=== PATIENT | female | born 1960 | race Caucasian/White ===

== ENCOUNTER 2019-07-21 16:43 | Inpatient (IN) ==
[2019-07-21] MEDS ORDERED: ASPIRIN PO ONE (16:47)
--- NOTE | 2019-07-21 16:56 | EKG Report ---
Test Performed on : 07/21/2019 4:53:43 PM Test Reason : cp Blood Pressure : / mmHG Vent. Rate : 068 BPM Atrial Rate : 068 BPM P-R Int : 160 ms QRS Dur : 102 ms QT Int : 416 ms P-R-T Axes : 045 -02 077 degrees QTc Int : 442 ms Normal sinus rhythm. Possible Left atrial enlargement Borderline ECG No previous ECGs available Unconfirmed Result
[2019-07-21] MEDS ORDERED: ZOFRAN IV ONE (16:57)
[2019-07-21] MEDS ORDERED: MORPHINE IV ONE (16:57)
[2019-07-21] MEDS ORDERED: NITROGLYCERIN TOP ONE (17:05)
--- NOTE | 2019-07-21 17:11 | PROVIDER DOCUMENTATION ---
HPI-Chest Pain - General Chief Complaint: Chest Pain Stated Complaint: CP-HEART PT Time Seen by Provider: 07/21/19 16:57 Source: patient Allergies/Adverse Reactions: Patient Allergies Allergy/AdvReac Type Severity Reaction Status Date / Time Iodinated Contrast Media Allergy ANAPHYLAXIS Verified 07/21/19 16:56 [IV Dye] Home Medications: Home Medication List Medication Instructions Recorded Confirmed Last Taken Type Alprazolam [Xanax Xr] 3 mg PO BID 07/21/19 07/21/19 Unknown History Alprazolam [Xanax] 1 mg PO DIRECTED 07/21/19 07/21/19 Unknown History Dextroamphetamine/Amphetamine 30 mg PO BID 07/21/19 07/21/19 Unknown History [Adderall 30 mg Tablet] Metoprolol [Lopressor] 25 mg PO BID 07/21/19 07/21/19 Unknown History Topiramate [Topamax] 100 mg PO BID 07/21/19 07/21/19 Unknown History Trazodone [Desyrel] 50 mg PO QHS 07/21/19 07/21/19 Unknown History - History of Present Illness-CP Nature of Presenting Problem: 59 yof with pmh of cardiomyopathy, mitral and aortic regurg anc CAD presents with CP, burning/sharp, radiates to her back since last night. no aggravating or alleviating factors. associated with nausea. HTN on arrival Location: reports: substernal Chest Pain Radiation: reports: back Quality of Pain: reports: burning, sharp, stabbing Severity in ED: moderate Onset/Duration: last night Timing: still present Context/Activities at Onset: reports: none Modifying Factors: improves with: nothing Associated Symptoms: reports: nausea Nitro Today/Relief: no nitro taken today Aspirin Treatment Today: 325 mg x 1, provided by ED Prior Chest Pain/Cardiac Workup: reports: other (hx of : mitral and aortic regurg, cardiomyopathy, CAD) Similar Symptoms Previously?: No Recently Seen Here or By Another Healthcare Provider: No Review of Systems - Adult - REVIEW OF SYSTEMS - ADULT Constitutional: reports: no symptoms reported. denies: chills, fever Eyes: reports: no symptoms reported. denies: decreased vision, blurred vision, double vision, eye pain Ears, Nose, Mouth & Throat: reports: no symptoms reported. denies: sinus pro blem, nose pain, loose teeth, mouth/dental pain, mouth swelling Cardiovascular: reports: see HPI, chest pain. denies: palpitations, PND Respiratory: reports: no symptoms reported. denies: cough, hemoptysis, shortness of breath, wheezing Gastrointestinal: reports: see HPI, nausea. denies: abdominal pain, diarrhea, vomiting Genitourinary: reports: no symptoms reported. denies: discharge, flank pain, frequent UTI's, hematuria Musculoskeletal: reports: no symptoms reported. denies: see HPI, bone pain, back pain, frequent leg cramps, joint pain, joint swelling, muscle aches, muscle weakness, neck pain, other Integumentary: reports: no symptoms reported. denies: see HPI, hives, hair loss, itching, mole changes, nail changes, rash, skin sores/ulcer, skin thickening, other Neurological: reports: no symptoms reported. denies: see HPI, ataxia, dizziness/vertigo, headache/migraines, loss of balance, numbness, paresthesia, seizure, slurred speech, syncope, tremors, other Psychiatric: reports: no symptoms reported. denies: see HPI, anxiety, anti- depressant use, alcohol/drug dependence, depression, emotional problems, insomnia, panic attacks, suicidal thoughts, other Endocrine: reports: no symptoms reported. denies: see HPI, change in skin pigment, excessive sweating, goiter, cold intolerance, heat intolerance, increased hunger, increased thirst, polyuria, other Hematologic/Lymphatic: reports: no symptoms reported. denies: see HPI, blood clots, easy bruising, low blood count, lymphedema, prolonged bleeding, swollen lymph nodes, transfusions, other Allergic/Immunologic: reports: no symptoms reported. denies: see HPI, allergic reactions, allergic rhinitis, asthma, eczema, food allergy, frequent infections, hay fever, hives, positive PPD, urticaria, other Past History - Adult - PAST MEDICAL HISTORY-ADULT Review of Records: reports: Nursing Assessment Review, Social history reviewed & non-contributory. - SOCIAL HISTORY Smoking: cigarettes, greater than 1 pack/day Provider spent 3-5 mins advising pt. on dangers of tobacco.: Discussed manners to quit use, and f/u contacts for add'l counseling. Physical Exam-General - PHYSICAL EXAM-ADULT Initial Vital Signs Reviewed: Yes - CONSTITUTIONAL General Appearance: alert, no apparent distress - EYES Eyes: PERRL/EOMI, pink conjunctivae - HEAD, EARS, NOSE, MOUTH & THROAT HENMT: normocephalic/atraumatic, moist mucous membranes, normal ENT inspection - NECK Neck: non-tender, full range of motion, supple - RESPIRATORY Respiratory: chest non-tender, lungs clear, normal breath sounds, no pleuratic chest pain, no respiratory distress, no accessory muscle use - CARDIOVASCULAR Cardiovascular: normal peripheral pulses, regular rate, rhythm, no edema, no gallop, no JVD, no murmur - GASTROINTESTINAL (ABDOMEN) Abdominal Exam: normal bowel sounds, non tender, soft - LYMPHATIC Lymphatic: no adenopathy - MUSCULOSKELETAL Back Exam: normal inspection, no CVA tenderness, no vertebral tenderness Extremity: normal range of motion, non-tender, normal gait, normal inspection, no pedal edema Peripheral Pulses: radial (R): 2+, radial (L): 2+ - SKIN Integumentary: normal color, normal turgor, warm/dry - NEUROLOGIC Neurologic: grossly normal - PSYCHIATRIC Psych/Mental Status: normal mood/affect, oriented x 3 - HEART Score HEART Score: History: Moderately Suspicious HEART Score: ECG: Normal HEART Score: Age: 45-65 Years HEART Score: Risk Factors for Atherosclerotic Disease: > or = 3 Risk Factors or History of Atherosclerotic Disease HEART Score: Troponin: 1-3x Normal Limit Total HEART Score:: 5 Progress - PLAN OF CARE/RESULTS Progress/Plan/Lab Results: Vital Signs - 8 hr 07/21/19 16:53 07/21/19 17:15 07/21/19 17:42 Temperature 98.7 F Pulse Rate 71 70 61 Respiratory Rate 17 18 20 Blood Pressure 224/104 224/104 190/91 O2 Sat by Pulse Oximetry 99 98 96 07/21/19 18:35 07/21/19 18:42 07/21/19 18:45 Temperature Pulse Rate 60 62 62 Respiratory Rate 18 18 17 Blood Pressure 188/89 175/91 145/81 O2 Sat by Pulse Oximetry 98 99 07/21/19 19:01 07/21/19 19:04 07/21/19 19:06 Temperature Pulse Rate 63 59 L 62 Respiratory Rate 15 22 15 Blood Pressure 78/48 71/35 97/52 O2 Sat by Pulse Oximetry 98 99 99 Laboratory Results - last 24 hr 07/21/19 07/21/19 07/21/19 17:00 17:00 17:00 WBC RBC Hgb Hct MCV MCH MCHC RDW Std Deviation Plt Count MPV Immature Gran % (Auto) Neut % (Auto) Lymph % (Auto) Tompkins % (Auto) Eos % (Auto) Baso % (Auto) Immature Gran # (Auto) Neut # (Auto) Lymph # (Auto) Tompkins # (Auto) Eos # (Auto) Baso # (Auto) PT INR PTT (Actin FS) 31.7 Sodium 141 Potassium 4.4 Chloride 102 Carbon Dioxide 24 L Anion Gap 15 BUN 10 Creatinine 1.0 H Estimated GFR/1.73 m2 57 BUN/Creatinine Ratio 10 Glucose 131 H Calculated Osmolality 282 Calcium 9.4 Total Bilirubin 0.32 AST 20 ALT 11 Alkaline Phosphatase 91 Creatine Kinase 81 Troponin T High Sens 42 H Total Protein 7.0 Albumin 4.2 Globulin 2.8 Albumin/Globulin Ratio 1.5 07/21/19 07/21/19 17:00 17:00 WBC 9.74 RBC 5.51 H Hgb 16.2 H Hct 50.2 H MCV 91.1 MCH 29.4 MCHC 32.3 L RDW Std Deviation 13.4 Plt Count 300 MPV 11.0 H Immature Gran % (Auto) 0.2 Neut % (Auto) 48.7 Lymph % (Auto) 41.3 Tompkins % (Auto) 6.8 Eos % (Auto) 1.7 Baso % (Auto) 1.3 H Immature Gran # (Auto) 0.02 Neut # (Auto) 4.74 Lymph # (Auto) 4.02 H Tompkins # (Auto) 0.66 H Eos # (Auto) 0.17 Baso # (Auto) 0.13 PT 12.8 INR 0.96 PTT (Actin FS) Sodium Potassium Chloride Carbon Dioxide Anion Gap BUN Creatinine Estimated GFR/1.73 m2 BUN/Creatinine Ratio Glucose Calculated Osmolality Calcium Total Bilirubin AST ALT Alkaline Phosphatase Creatine Kinase Troponin T High Sens Total Protein Albumin Globulin Albumin/Globulin Ratio Orders Category Date Time Status Saline Loc NOW Care 07/21/19 16:48 Active cxr [CHEST-2 VIEWS] [RAD] Stat Exams 07/21/19 16:48 Completed CBC WITH ELECTRONIC DIFF [HEME] Stat Lab 07/21/19 17:00 Completed CK PROFILE [SP CHEM] Stat Lab 07/21/19 17:00 Completed COMPREHENSIVE METABOLIC PANEL [CHEM] Stat Lab 07/21/19 17:00 Completed PROTIME WITH INR [COAG] Stat Lab 07/21/19 17:00 Completed PTT [COAG] Stat Lab 07/21/19 17:00 Completed TROPONIN T HIGH SENSITIVITY Stat Lab 07/21/19 17:00 Completed TROPONIN T HIGH SENSITIVITY Stat Lab 07/21/19 18:57 Received 0.9% Sodium Chloride Inj [Ns] 1,000 ml Med 07/21/19 19:12 Discontinued .ROUTE As directed 0.9% Sodium Chloride Inj [Ns] 1,000 ml Med 07/21/19 19:11 Active IV 999 mls/hr Aspirin Med 07/21/19 16:47 Discontinued 325 mg PO NOW ONE Hydralazine [Apresoline] Med 07/21/19 18:25 Discontinued 10 mg IV NOW ONE Lido/Noel Alk/Al&mg Hydrox [G.i. Cocktail] Med 07/21/19 18:42 Discontinued 30 ml PO NOW ONE Morphine Med 07/21/19 16:57 Discontinued 4 mg IV NOW ONE Nitroglycerin Med 07/21/19 17:05 Discontinued 0.5 inch TOP NOW ONE Ondansetron [Zofran] Med 07/21/19 16:57 Discontinued 4 mg IV NOW ONE EKG [EKG] Stat Ther 07/21/19 16:47 Draft EKG [EKG] Stat Ther 07/21/19 19:00 Ordered Result Diagrams: 07/21/19 17:00 07/21/19 17:00 - REASSESSMENT Reassessment #1 Time Reassessed: 17:51 Status: unchanged (pain has improved, remains hypertensive) Reassessment #2 Time Reassessed: 19:10 Status: other (notifed by RN patient BP dropped to 70S, evaluated patient who is alert and oriented, BP now 97/52 in trendelenburg- MD has now seen the patient) - EKG 1 Time of EKG reading by physician:: 16:54 EKG Read and Signed by:: Jude López EKG Interpretation (*Must complete 3 of following elements*): Abnormal Rate: 68 Rhythm: NSR Mather: normal QRS: other (possible left atrial enlargement) WI Interval: normal ST Wave: normal Prior EKG Comparison: no prior EKG 2 Time of EKG reading by physician:: 19:10 EKG Read and Signed by:: Nabila Dominguez EKG Interpretation (*Must complete 3 of following elements*): Abnormal Rate: 61 Rhythm: NSR Mather: normal QRS: other (possible LAE) WI Interval: normal ST Wave: normal Prior EKG Comparison: unchanged from prior - XRAY 1 XRAY Study: Chest Impression: See EMR Report (EXAM: CHEST-2 VIEWS HISTORY: CP TECHNIQUE: Two views COMPARISON: None. FINDINGS: The lungs are well expanded. The heart is not enlarged. The vessels are not distended. There are no infiltrates. No pleural effusions. IMPRESSION: No acute abnormality. Electronically signed by Willard Cruz 07/21/2019 5:35 PM 07/21/191734 Interpreting Physician: Willard Cruz MD Dictated Date/Time: 07/21/191734 cc: Katlin Marino; None,PCP) - CONSULTS/PCP/HOSPITALIST Notification #1 *Consult/PCP/Hospitalist*: Dr. Nieves Time Discussed: 19:33 Consult Disposition: Admit Departure - Departure Date of Disposition Decision: 07/21/19 Time of Disposition Decision: 19:33 DIAGNOSIS: Hypertensive urgency, Chest pain Disposition: ADMITTED INPATIENT 09 Certified Medical Emergency: Emergent Condition: Stable Referrals and Follow-Ups: None,PCP [Primary Care Provider] - - Critical Care Note This patient required my direct & personal management of CC.: No Attestation - Physician/ DAVID Attestation Patient care was provided by Advanced Practice Provider:: Yes Advanced Practice Provider:: Katlin Marino Advanced Practice Provider documentation review:: The Mid-level provider documentation, treatment plan and medical decision making was reviewed by the physician who agrees with all treatment and medical decision making by the P. The physician spent face to face time with patient:: Yes (Dr. Howell) Advanced Practice Provider documentation review:: Supervising physician onsite and consulted in the evaluation and care of this patient. The physician did have a face to face encounter with the patient.
[2019-07-21 17:14] LABS: BASO# 0.13 X1000 (0.0-0.2); BASO% 1.3 % (0.0-0.8); EOS# 0.17 X1000 (0.0-0.7); EOS% 1.7 % (0.0-10.0); HEMATOCRIT 50.2 % (37.0-47.0); HEMOGLOBIN 16.2 g/dL (12.0-16.0); IMM GRAN# 0.02 X1000 (0.0-0.04); IMM GRAN% 0.2 % (0.0-0.5); LYMPH# 4.02 X1000 (1.2-3.4); LYMPH% 41.3 % (20.5-51.1); MCH 29.4 PG (27-31); MCHC 32.3 g/dL (33-37); MCV 91.1 FL (81-99); MONO# 0.66 X1000 (0.11-0.59); MONO% 6.8 % (1.7-9.3); NEUT# 4.74 X1000 (1.4-6.5); NEUT% 48.7 % (42.2-75.2); PLT 300 X1000 (130-400); RBC 5.51 XMIL (4.2-5.4); RDW 13.4 % (11.5-14.5); WBC 9.74 X1000 (4.8-10.8)
[2019-07-21 17:22] LABS: INR 0.96; PROTIME 12.8 Seconds (11.0-16.0)
[2019-07-21 17:32] LABS: ALB/GLOB RATIO 1.5; ALBUMIN 4.2 g/dL (3.5-5.0); CALCIUM 9.4 mg/dL (8.8-10.2); POTASSIUM 4.4 mmol/L (3.5-5.1); TOTAL BILIRUBIN 0.32 mg/dL (0.20-1.00)
--- NOTE | 2019-07-21 17:37 | Diag Imaging Result Doc PS360 ---
EXAM: CHEST-2 VIEWS HISTORY: CP TECHNIQUE: Two views COMPARISON: None. FINDINGS: The lungs are well expanded. The heart is not enlarged. The vessels are not distended. There are no infiltrates. No pleural effusions. IMPRESSION: No acute abnormality. Electronically signed by Willard Cruz 07/21/2019 5:35 PM
[2019-07-21] MEDS ORDERED: APRESOLINE IV ONE (18:25)
[2019-07-21] MEDS ORDERED: G.I. COCKTAIL PO ONE (18:42)
[2019-07-21] MEDS ORDERED: NS 1,000 ML IV ONE (19:11)
[2019-07-21] MEDS ORDERED: NS 1,000 ML ONE (19:12)
--- NOTE | 2019-07-21 19:41 | EKG Report ---
Test Performed on : 07/21/2019 7:04:47 PM Test Reason : CP Blood Pressure : / mmHG Vent. Rate : 061 BPM Atrial Rate : 061 BPM P-R Int : 142 ms QRS Dur : 096 ms QT Int : 434 ms P-R-T Axes : 038 -04 083 degrees QTc Int : 436 ms Normal sinus rhythm. Possible Left atrial enlargement Borderline ECG When compared with ECG of 21-JUL-2019 16:53, (Unconfirmed) No significant change was found Unconfirmed Result
[2019-07-21] MEDS ORDERED: NS 1,000 ML IV SCH (22:00)
[2019-07-21] MEDS: DILAUDID IV PRN (22:01)
[2019-07-21] MEDS: NITROGLYCERIN TOP SCH (22:08)
--- NOTE | 2019-07-22 00:18 | EKG Report ---
Test Performed on : 07/22/2019 00:01:01 AM Test Reason : chest pain Blood Pressure : / mmHG Vent. Rate : 076 BPM Atrial Rate : 076 BPM P-R Int : 152 ms QRS Dur : 104 ms QT Int : 416 ms P-R-T Axes : 058 004 071 degrees QTc Int : 468 ms Normal sinus rhythm. Possible Left atrial enlargement Borderline ECG When compared with ECG of 21-JUL-2019 19:04, (Unconfirmed) No significant change was found Confirmed by Tucker BAILEY, Sesar Rose ([id number]) on 07/23/2019 9:25:16 AM
[2019-07-22] MEDS: LOVENOX SUBQ SCH ×2 (00:48→13:56)
[2019-07-22] MEDS: TOPAMAX PO SCH ×3 (01:25→20:01)
[2019-07-22] MEDS: DESYREL PO SCH ×2 (01:25→20:02)
[2019-07-22] MEDS: NITROGLYCERIN TOP SCH ×4 (04:17→21:52)
[2019-07-22] MEDS: PRILOSEC PO SCH (06:23)
[2019-07-22] MEDS: DILAUDID IV PRN ×2 (06:27→17:01)
[2019-07-22] MEDS ORDERED: DUONEB (A & A) INH PRN (06:38)
[2019-07-22] MEDS ORDERED: NICODERM PATCH TD PRN (06:39)
--- NOTE | 2019-07-22 07:01 | HISTORY AND PHYSICAL ---
CHIEF COMPLAINT: Left-sided chest pain noted prior to admission. HISTORY OF PRESENT ILLNESS: Ms. Elda Gomez is a 59-year-old female who has a history of hypertrophic cardiomyopathy, coronary artery disease, aortic valve regurgitation, mitral valve regurgitation, bronchial asthma, and presents to the hospital because of left- sided chest pain which she noted prior to admission. She describes the pain as a dull stabbing pain. On a scale of 0 to 10, it is 5/10. It is nonradiating, constant. It is improved with pain medication and made worse with activity. She has had associated shortness of breath. No diaphoresis or palpitations. At the time of presentation, x-ray of the chest did not show any acute abnormalities. EKG showed normal sinus rhythm. Troponin levels were 42/51/279. The patient has now been admitted to the floor for further management. PAST MEDICAL HISTORY: Hypertrophic cardiomyopathy, coronary artery disease, aortic valve regurgitation, mitral valve regurgitation, degenerative joint disease, bronchial asthma. SOCIAL HISTORY: She smokes about a pack of cigarettes a day for the last 40 years. No drug use. Drinks alcohol occasionally. FAMILY HISTORY: Positive for CVA. ALLERGIES: She is allergic to IVP dye. PAST SURGICAL HISTORY: She has had C-spine surgery, right rotator cuff surgery, two sections, partial hysterectomy, tonsillectomy, as well as appendectomy. MEDICATIONS: Include the following: Alprazolam 1 mg p.o. as directed, alprazolam extended release 3 mg p.o. twice a day, Adderall 30 mg p.o. twice a day, metoprolol 25 mg p.o. twice a day, topiramate 100 mg p.o. twice a day, trazodone 50 mg p.o. at bedtime. REVIEW OF SYSTEMS: Constitutional: No fever. 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 Eyes: No blurred vision. ENT: No sinus problems or hearing loss. Respiratory: She has a cough. GI: She has nausea but no abdominal pain. : No dysuria. Musculoskeletal: No joint pains. Endocrine: No thyroid disease or diabetes. Hematology: No bleeding problems. Dermatology: No skin lesions. Allergy/Immunology: She does have symptoms suggestive of allergic rhinitis. PHYSICAL EXAMINATION: VITAL SIGNS: Temperature 98.2 degrees, pulse 77, respirations 20, blood pressure 147/62, oxygen saturation is 96%. HEENT: Atraumatic, normocephalic. She is anicteric. No oral lesions. NECK: No lymphadenopathy or thyromegaly. CARDIOVASCULAR SYSTEM: S1-S2 with a possible diastolic murmur. RESPIRATORY SYSTEM: Has evidence of good air entry bilaterally. ABDOMEN: Soft, nontender. No masses felt. EXTREMITIES: No evidence of edema. CENTRAL NERVOUS SYSTEM: No obvious focal deficit noted. LABORATORY DATA: WBC 9.75, hematocrit is 50.2, with a platelet count of 300,000. INR is 0.96, D- dimer less than 0.27. Sodium is 141, potassium 4.4, chloride is 102, bicarb 24, BUN is 10, creatinine is 1.0, glucose 131. Troponin level 42/51/279. EKG shows normal sinus rhythm with left atrial enlargement. Chest x-ray shows no acute abnormalities. ASSESSMENT AND PLAN: 1. Chest pain, rule out acute coronary syndrome/history of coronary artery disease. We will place patient on telemetry. Follow up on serial cardiac enzymes. Maintain patient on aspirin, beta evie, as well as nitroglycerin paste. Maintain patient on low molecular weight heparin. Request 2D echo of the heart. Consult with cardiology. Check lipid panel. 2. Hypertrophic cardiomyopathy. Continue beta evie. Follow up on 2D echo of the heart. 3. Valvular heart disease. Aware. Follow up on 2D echo of the heart. 4. Bronchial asthma. Asymptomatic. Nebulized bronchodilators as needed. 5. Tobacco use history. Recommend a nicotine patch. 6. History of degenerative joint disease. Optimize pain control. 7. Deep vein thrombosis prophylaxis. Lovenox. 8. Gastrointestinal prophylaxis. Proton pump inhibitor. cc: Javier Nieves MD MTDD
[2019-07-22] MEDS: DUONEB (A & A) INH SCH ×5 (07:50→23:58)
[2019-07-22] MEDS: LOPRESSOR PO SCH ×2 (08:16→20:01)
[2019-07-22] MEDS ORDERED: LOVENOX SUBQ SCH (09:00)
[2019-07-22] MEDS ORDERED: ASPIRIN PO SCH (09:00)
[2019-07-22 09:10] LABS: CHOLESTEROL 213 mg/dL (0-200); HDL 43 mg/dL (45-65); LDL 125 mg/dL; TRIGLYCERIDES 227 mg/dL (35-135); VLDL 45 mg/dL
[2019-07-22 09:12] LABS: AGAP 12; BUN 9 mg/dL (8-22); CALCIUM 8.8 mg/dL (8.8-10.2); CHLORIDE 105 mmol/L (98-107); COSMO 277; CREATININE 0.9 mg/dL (0.5-0.9); ESTIMATED GFR > 60; GLUCOSE 110 mg/dL (70-104); POTASSIUM 4.2 mmol/L (3.5-5.1); SODIUM 139 mmol/L (136-145); TCO2 22 mmol/L (25-35)
[2019-07-22 09:35] LABS: CK INDEX 14.2 (0.0-2.5); CK-MB 204.7 ng/mL (0.0-5.0)
--- NOTE | 2019-07-22 11:21 | EKG Report ---
Test Performed on : 07/22/2019 09:38:17 AM Test Reason : CP Blood Pressure : / mmHG Vent. Rate : 076 BPM Atrial Rate : 076 BPM P-R Int : 158 ms QRS Dur : 094 ms QT Int : 406 ms P-R-T Axes : 056 004 074 degrees QTc Int : 456 ms Normal sinus rhythm. Possible Left atrial enlargement T wave abnormality, consider lateral ischemia Abnormal ECG When compared with ECG of 22-JUL-2019 00:01, (Unconfirmed) No significant change was found Confirmed by Tucker BAILEY, Sesar Rose ([id number]) on 07/23/2019 9:25:30 AM
--- NOTE | 2019-07-22 13:15 | PROGRESS NOTE ---
DATE: 07/22/2019 SUBJECTIVE: The patient is resting comfortably in bed. She complains of some mild chest discomfort and anxiety. OBJECTIVE: Vital Signs: Temperature 98.3 degrees, blood pressure 92/54, heart rate 57, respirations 16, O2 saturation is 95% on room air. General: This is a chronically ill-appearing, elderly female lying in bed, in no acute distress. Heart: S1, S2 normal. Lungs: Clear to auscultation bilaterally. Abdomen: Positive bowel sounds. Soft, nontender, nondistended. Extremities: No edema, no cyanosis. Neurologic: The patient is alert and oriented x3. Labs: Sodium 139, potassium 4.2, chloride 105, CO2 of 22, BUN 9, creatinine 0.9, glucose 110. Troponin 1038. Cholesterol 213, triglycerides 227, LDL 125. EKG reveals normal sinus rhythm with T-wave abnormality, a rate of 76 beats per minute. ASSESSMENT AND PLAN: 1. [id number] myocardial infarction. The case was discussed with Dr. Branham. We will continue on Lipitor, aspirin, Lopressor, topical nitroglycerin, and full dose Lovenox. An echocardiogram has been ordered for today. The patient may require transfer to [facility] for further intervention. We will continue to monitor the patient closely in the PVC unit. 2. Anxiety disorder. We will restart the patient's Xanax. 3. Hyperlipidemia. The patient has been started on Lipitor. 4. Obesity. Aware. cc: Joanne Browning MD
--- NOTE | 2019-07-22 13:48 | ECHO REPORT ---
ORDER DATE: 07/21/2019 INTERPRETING PHYSICIAN: Dr. Iban Branham. ECHOCARDIOGRAPHIC MEASUREMENTS: 1. Interventricular septum: 1.5 cm. 2. Left ventricular posterior wall: 1.5 cm. 3. Left ventricular diastolic diameter: 4.6 cm. 4. Left ventricular systolic diameter: 2.7 cm. 5. Aorta: 3.2 cm. 6. Left atrium: 4.1 cm. SUMMARY OF THE 2-DIMENSIONAL IMAGIN. Aortic valve leaflets were sclerosed, trileaflet, opening normally. 2. Aortic valve area by planimetry was 1.7 to 2 square cm. 3. There was a slight systolic anterior motion of the mitral valve leaflets. 4. There was mild thickening of the mitral valve leaflets as well. 5. Tricuspid valve was normal. 6. There is left atrial enlargement. 7. There is moderate eccentric mitral regurgitation. 8. There is no aortic stenosis. There is moderate aortic regurgitation. 9. Normal left ventricular cavity size. Concentric left ventricular hypertrophy with ejection fraction of 70 to 75 percent. During Valsalva, there is significant interventricular gradient going up to 4.5 m/sec with a maximum gradient of 81.6 mmHg, mean gradient of 47 mmHg. 10. Peak velocity across the tricuspid valve was 2.5 m/sec. 11. Pulmonary artery systolic pressure of 35 to 40 mmHg. 12. There is no pericardial effusion or obvious intracardiac mass or thrombus seen. CONCLUSIONS: 1. Hypertrophic cardiomyopathy with severe interventricular increased velocity with Valsalva maneuver, going up to 81.6 mmHg. 2. There is a systolic anterior motion of the mitral valve leaflet. 3. There is moderate eccentric mitral regurgitation. 4. There is moderate aortic regurgitation. There is no aortic stenosis. cc: MD Javier Gonzales MD
[2019-07-22] MEDS: PREDNISONE PO SCH ×2 (13:55→16:57)
--- NOTE | 2019-07-22 14:20 | CARDIOLOGY CONSULTATION ---
DATE: 07/22/2019 REASON FOR CONSULTATION: Cardiology was consulted for abnormal cardiac enzymes and chest discomfort. HISTORY OF PRESENT ILLNESS: A 59-year-old, lady, who about 4 years back in [place], was diagnosed to have minimal coronary artery disease, hypertrophic cardiomyopathy, and aortic regurgitation, who comes with complaints of left-sided chest discomfort prior to admission, she describes as dull, stabbing as well, pressure-like sensation, 5/10, which was radiating to her back as well. This was associated with shortness of breath. There were no palpitations or diaphoresis. She does not complain of any dizziness or syncope. She came to the emergency room. Chest x-ray did not reveal any abnormality. Electrocardiogram revealed normal sinus rhythm. There were no ST-T changes to suggest ischemia, abnormal troponin, and subsequently she was admitted. At the time of my examination, the patient was pain-free. REVIEW OF SYSTEMS: A 14-point review of systems was done. GI: There is no history of nausea, vomiting, diarrhea. There is no history of hematemesis or melena. Central Nervous System: No focal weakness to suggest a CVA or TIA. : There is no dysuria or hematuria. PAST MEDICAL HISTORY: 1. Hypertrophic cardiomyopathy. 2. Minimal coronary artery disease. The above diagnosed about 4 years back in [place]. 3. Aortic regurgitation. 4. Mitral regurgitation. 5. Degenerative joint disease. 6. Asthma. SOCIAL HISTORY: She smokes about a pack of cigarettes a day for the last 40 years. No illicit drug abuse. No alcohol abuse. FAMILY HISTORY: Positive for CVA. ALLERGIES: She is allergic to IVP dye. PAST SURGICAL HISTORY: 1. Cervical spine surgery. 2. Rotator cuff surgery. 3. Two section. 4. Partial hysterectomy. 5. Tonsillectomy. 6. Appendectomy. HOME MEDICATIONS: Alprazolam 1 mg extended-release 3 mg twice daily, Adderall 30, metoprolol 25 b.i.d., topiramate 100 mg b.i.d., trazodone. PHYSICAL EXAMINATION: Vital Signs: When she came in, blood pressure was 140/60. Heart: There was a systolic murmur radiating to her neck, as well as best heard in the left mammary region. There was an early diastolic murmur as well. Respiratory: Normal air entry. There were no crepitations or rhonchi. Abdomen: Soft, nontender. There was no guarding or rigidity. Bowel sounds were heard. Central Nervous System: Alert and oriented, was moving all 4 extremities. Extremities: No pedal edema. HEENT: Atraumatic, normocephalic. Pupils were equal and reacting to light. Neck: Jugular venous pressure was normal. There was no lymphadenopathy or thyromegaly. IMAGING AND LABORATORY DATA: Laboratory examination revealed sodium 139, potassium 4.2, BUN 9, creatinine 0.9. CK was 1440. CK-MB of 204. CK creatinine index of 14.2. Troponin when she came in was 42, subsequently increased to 279, and increased to 1038. Electrocardiogram: Normal sinus rhythm. There were no ST-T changes to suggest ischemia or infarction. HDL cholesterol 43, LDL cholesterol 125, triglycerides 227. Chest x-ray was unremarkable. ASSESSMENT AND PLAN: Ms. Elda Gomez is a 59-year-old, lady, who is a smoker, has minimal coronary artery disease, hypertrophic cardiomyopathy, aortic regurgitation, came to the emergency room with chest discomfort radiating to the back, has abnormal cardiac enzymes. Currently, she is pain-free. 1. The patient has a non Q-wave myocardial infarction. 2. Echocardiogram done today revealed hypertrophic cardiomyopathy with ejection fraction of 75%, increasing intraventricular gradient by Valsalva to 81 mmHg. There is no aortic stenosis. There is moderate aortic regurgitation and moderate eccentric mitral regurgitation. Given this, I have recommended that she undergo a left heart catheterization. Risks, benefits, and alternatives were explained. The patient will be set up for left heart catheterization. 3. She is allergic to IVP dye. We will premedicate her with steroids, omeprazole, and Benadryl. 4. She has been started on Lopressor 25 mg, which she has been taking. We will increase it to twice daily. She also received Lovenox and aspirin. 5. Given the non Q-wave myocardial infarction, I will start her on Lipitor 40 mg a day as well. Thank you for the consult. Will follow hospital course. cc: Iban Branham MD
[2019-07-22 15:34] LABS: CK INDEX 12.1 (0.0-2.5); CK-MB 202.5 ng/mL (0.0-5.0)
[2019-07-22] MEDS ORDERED: BENADRYL PO SCH (21:00)
[2019-07-22] MEDS ORDERED: LIPITOR PO SCH (21:00)
[2019-07-22] MEDS ORDERED: XANAX XR PO SCH (21:00)
[2019-07-22] MEDS ORDERED: TESSALON PO PRN (22:10)
[2019-07-23] MEDS: LOVENOX SUBQ SCH (00:04)
[2019-07-23] MEDS: DILAUDID IV PRN (00:19)
[2019-07-23] MEDS: DUONEB (A & A) INH SCH (03:11)
[2019-07-23] MEDS: NITROGLYCERIN TOP SCH (04:00)
[2019-07-23 06:21] LABS: HEMATOCRIT 39.3 % (37.0-47.0); HEMOGLOBIN 12.4 g/dL (12.0-16.0); MCHC 31.6 g/dL (33-37); MCV 94.9 FL (81-99); MPV 11.8 FL (7.4-10.4); RBC 4.14 XMIL (4.2-5.4); RDW 13.5 % (11.5-14.5); WBC 14.92 X1000 (4.8-10.8)
[2019-07-23] MEDS: PRILOSEC PO SCH (06:25)
[2019-07-23 06:33] LABS: INR 1.11; PROTIME 14.5 Seconds (11.0-16.0)
[2019-07-23 07:27] LABS: CALCIUM 8.8 mg/dL (8.8-10.2); CREATININE 1.1 mg/dL (0.5-0.9); POTASSIUM 4.2 mmol/L (3.5-5.1)
[2019-07-23 07:41] VITALS: BP 138/95
--- NOTE | 2019-07-23 07:53 | EKG Report ---
Test Performed on : 07/23/2019 06:56:03 AM Test Reason : Non QWave WA Blood Pressure : / mmHG Vent. Rate : 094 BPM Atrial Rate : 094 BPM P-R Int : 148 ms QRS Dur : 098 ms QT Int : 376 ms P-R-T Axes : 041 -12 097 degrees QTc Int : 470 ms Normal sinus rhythm. Possible Left atrial enlargement Left ventricular hypertrophy with repolarization abnormality Abnormal ECG When compared with ECG of 22-JUL-2019 09:38, (Unconfirmed) No significant change was found Confirmed by Tucker BAILEY, Sesar Rose ([id number]) on 07/23/2019 9:26:14 AM
[2019-07-23] MEDS ORDERED: NICODERM PATCH TD SCH (09:00)
--- NOTE | 2019-07-23 20:31 | DISCHARGE SUMMARY ---
ADMISSION DATE: 07/21/2019 DISCHARGE DATE: 07/23/2019 FINAL DISCHARGE DIAGNOSES: 1. [id number]-[id number] myocardial infarction. 2. Anxiety disorder. 3. Hyperlipidemia. 4. Migraines. CONSULTATIONS: Cardiology consultation with Dr. Branham. IMAGIN. Chest x-ray performed on 07/21/2019, which revealed no acute abnormality. 2. Echocardiogram performed on 07/21/2019, which revealed hypertrophic cardiomyopathy with severe intraventricular increased velocity. Moderate aortic regurgitation. EF of 70% to 75%. HOSPITAL COURSE: Ms. Gomez is a 59-year-old female with a history of hypertrophic cardiomyopathy and moderate aortic regurgitation who presented to the ER with a chief complaint of chest pain. Initial cardiac enzymes were noted to be negative; however, after admission, the patient's troponin jumped up to 279 and then 1038 and then finally 1503. Cardiology was consulted, and adjustments were made to the patient's cardiac regimen. After discussion with the Cardiology service in [place], it was determined that the patient would benefit from transfer for further intervention. On 07/23/2019, the patient was transferred to [facility] for further cardiac intervention. cc: Joanne Browning MD
== END 2019-07-23 08:30 | disposition short-term general hospital (02) | DRG 281 ==
LOC: ED 16:43 → SUATTDRO 22:10 → 3N 22:10 → 2N 07-22 00:53
PROVIDERS: ATTEND Internal Medicine